=== PATIENT | male | born 1960 | race Caucasian/White ===

== ENCOUNTER 2018-08-08 18:52 | Emergency (ER) | payer MEDICAID ==
[~2018-08-08] VITALS: Ht 180.3 cm; Wt 127.0 kg
[2018-08-08 19:02] VITALS: BP 128/77
[2018-08-08 21:52] LABS: Basophils # (auto) 0.1 uL; Basophils % (auto) 0.9 % (0.0-2.0); Eosinophils # (auto) 0.3 uL; Eosinophils % (auto) 4.6 % (0.0-7.0); Hematocrit 46.7 % (41.0-53.0); Hemoglobin 16.2 g/dL (13.5-17.5); Lymphocytes # (auto) 2.1 uL; Lymphocytes % (auto) 32.3 % (10.0-50.0); Mean Corpuscular Hemoglobin 33.6 pg (28.0-32.0); Mean Corpuscular Hgb Conc. 34.7 g/dL (32.0-36.0); Mean Corpuscular Volume 96.8 fL (80.0-100.0); Monocytes # (auto) 0.6 uL; Monocytes % (auto) 9.7 % (0.0-12.0); Neutrophils # (auto) 3.5 uL; Neutrophils % (auto) 52.5 % (37.0-80.0); Nucleated Red Blood Cells % 0.1 %; Platelet Count (auto) 99 10^3/uL (140-450); Red Blood Cells 4.82 10^6/uL (4.5-5.90); Red Cell Distribution Width 13.1 % (11.8-14.3); White Blood Cell 6.6 10^3/uL (4.4-10.8)
[2018-08-08 22:20] LABS: Albumin 3.1 g/dL (3.4-5.0); BUN/Creatinine Ratio 13.1; Calcium 7.9 mg/dL (8.5-10.1); Potassium 3.7 mmol/L (3.5-5.1); Uric Acid 4.8 mg/dL (3.5-7.2)
[2018-08-08 22:22] LABS: Bilirubin, Total 0.7 mg/dL (0.2-1.0)
[2018-08-08] MEDS ORDERED: TETANUS-DIPTH-ACEL PERTUSSIS 0.5ML SYRG IM ONE (23:15)
[2018-08-08] MEDS ORDERED: TRIAMCINOLONE 40MG/ML 1ML VIAL IM ONE (23:15)
[2018-08-08] MEDS ORDERED: HYDROcodone-ACET 10/325MG TAB PO ONE (23:15)
== END 2018-08-08 23:33 | disposition home or self-care (01) ==
LOC: ER 18:57
DX: M77.32 Calcaneal spur, left foot (principal); M77.31 Calcaneal spur, right foot; Z23 Encounter for immunization
CPT/HCPCS: 20605; 36415; 73630; 80053; 83605; 84550; 85025; 90471; 90715; 99284; J3301; 20550

== ENCOUNTER 2018-10-30 18:50 | Emergency (ER) | payer MEDICAID ==
[~2018-10-30] VITALS: Ht 180.3 cm; Wt 122.5 kg
[2018-10-30 20:25] LABS: Basophils # (auto) 0.1 uL; Eosinophils # (auto) 0.3 uL; Lymphocytes # (auto) 1.8 uL; Monocytes # (auto) 0.8 uL; Neutrophils # (auto) 4.7 uL; White Blood Cell 7.7 10^3/uL (4.4-10.8)
[2018-10-30 20:26] LABS: Basophils % (auto) 0.8 % (0.0-2.0); Hematocrit 42.3 % (41.0-53.0); Hemoglobin 14.9 g/dL (13.5-17.5); Lymphocytes % (auto) 23.4 % (10.0-50.0); Mean Corpuscular Hemoglobin 34.6 pg (28.0-32.0); Mean Corpuscular Hgb Conc. 35.3 g/dL (32.0-36.0); Mean Corpuscular Volume 98.2 fL (80.0-100.0); Monocytes % (auto) 10.2 % (0.0-12.0); Neutrophils % (auto) 61.6 % (37.0-80.0); Nucleated Red Blood Cells % 0.2 %; Platelet Count (auto) 86 10^3/uL (140-450); Red Blood Cells 4.31 10^6/uL (4.5-5.90); Red Cell Distribution Width 13.8 % (11.8-14.3)
[2018-10-30] MEDS ORDERED: ALBUTEROL SULF 2.5 MG/0.5ML(0.5%) NEB SOLN NEB ONE (20:30)
[2018-10-30] MEDS ORDERED: FUROSEMIDE 20 MG/2 ML VIAL IV ONE (20:30)
[2018-10-30] MEDS ORDERED: IPRATROPIUM BROM 0.5 MG/2.5ML INH SOL NEB ONE (20:30)
[2018-10-30 20:48] LABS: Chloride 111 mmol/L (98-107); INR 0.97 (0.9-1.15); Partial Thromboplastin Time 24.1 sec (23.64-32.05); Potassium 3.5 mmol/L (3.5-5.1); Sodium 143 mmol/L (136-145)
[2018-10-30 20:55] LABS: Albumin 2.7 g/dL (3.4-5.0); Anion Gap 5 (5-15); BUN/Creatinine Ratio 10.6; Blood Urea Nitrogen 15 mg/dL (7-18); Calcium 8.8 mg/dL (8.5-10.1); Carbon Dioxide 27 mmol/L (21-32); GFR African American 66 mL/min; GFR Non-African American 55 mL/min; Glucose 114 mg/dL (74-106); Magnesium 2.3 mg/dL (1.6-2.6)
[2018-10-30 20:59] LABS: Alanine Aminotransferase 41 U/L (16-61); Alkaline Phosphatase 87 U/L (45-117); Aspartate Aminotransferase 34 U/L (15-37); Bilirubin, Total 0.5 mg/dL (0.2-1.0); Total Protein 6.7 g/dL (6.4-8.2)
[2018-10-30] MEDS ORDERED: SODIUM CHLORIDE 0.9% 500 ML IV ONE (22:00)
[2018-10-30] MEDS ORDERED: IOHEXOL 350 MG/ML 100ML IJ ONE (22:23)
[2018-10-30 22:51] LABS: Urine Bacteria FEW /hpf (None Seen); Urine Blood Negative /uL (Negative); Urine Hyaline Cast FEW /lpf (0 - 2); Urine Mucus FEW (None Seen); Urine Specific Gravity 1.005 (1.001-1.035); Urine WBC 25 /hpf (0 - 3)
[2018-10-31 00:01] VITALS: BP 140/75
== END 2018-10-31 00:42 | disposition home or self-care (01) ==
LOC: EDUNIT# 18:50 → EDBD 18:50 → ER 18:54
DX: J44.9 Chronic obstructive pulmonary disease, unspecified (principal); J98.01 Acute bronchospasm; N39.0 Urinary tract infection, site not specified; F17.210 Nicotine dependence, cigarettes, uncomplicated; Z90.49 Acquired absence of other specified parts of digestive tract; Z87.442 Personal history of urinary calculi
CPT/HCPCS: 36415; 71045; 71275; 80053; 81001; 83735; 83880; 84484; 85025; 85379; 85610; 85730; 93005; 94640; 94761; 96374; 99284; J1940; J7040; J7611; J7644; Q9967

== ENCOUNTER 2018-12-29 21:03 | Emergency (ER) | payer MEDICAID ==
[~2018-12-29] VITALS: Ht 180.3 cm; Wt 136.1 kg
[2018-12-29 21:54] VITALS: BP 154/85
[2018-12-29] MEDS ORDERED: KETOROLAC TROMETH 60MG/2ML VIAL IM ONE (22:15)
[2018-12-29] MEDS ORDERED: methylPREDNISolone SOD SUCC 125 MG/2 ML VL IM ONE (22:15)
== END 2018-12-29 22:39 | disposition home or self-care (01) ==
LOC: ER 21:05
DX: M19.031 Primary osteoarthritis, right wrist (principal); Z87.442 Personal history of urinary calculi
CPT/HCPCS: 73110; 73130; 96372; 99283; J1885; J2930

== ENCOUNTER 2019-01-22 13:49 | Emergency (ER) | payer MEDICAID ==
[~2019-01-22] VITALS: Ht 180.3 cm; Wt 136.1 kg
[2019-01-22] MEDS ORDERED: SODIUM CHLORIDE 0.9% 1,000 ML IVB ONE (14:54)
[2019-01-22 15:38] LABS: Basophils # (auto) 0 uL; Eosinophils # (auto) 0.3 uL; Hemoglobin 16.6 g/dL (13.5-17.5); Monocytes # (auto) 0.5 uL; Platelet Count (auto) 112 10^3/uL (140-450)
[2019-01-22 15:40] LABS: Basophils % (auto) 0.7 % (0.0-2.0); Eosinophils % (auto) 5.1 % (0.0-7.0); Hematocrit 46.9 % (41.0-53.0); Lymphocytes # (auto) 1.5 uL; Lymphocytes % (auto) 23.5 % (10.0-50.0); Mean Corpuscular Hemoglobin 35.6 pg (28.0-32.0); Mean Corpuscular Hgb Conc. 35.4 g/dL (32.0-36.0); Mean Corpuscular Volume 100.7 fL (80.0-100.0); Neutrophils # (auto) 4.1 uL; Neutrophils % (auto) 62.7 % (37.0-80.0); Nucleated Red Blood Cells % 0.2 %; Red Blood Cells 4.65 10^6/uL (4.5-5.90); Red Cell Distribution Width 13.2 % (11.8-14.3); White Blood Cell 6.5 10^3/uL (4.4-10.8)
[2019-01-22 15:54] LABS: Albumin 3.3 g/dL (3.4-5.0); Amylase 66 U/L (25-115); Anion Gap 3 (5-15); Blood Urea Nitrogen 10 mg/dL (7-18); Calcium 8.3 mg/dL (8.5-10.1); Carbon Dioxide 30 mmol/L (21-32); Chloride 108 mmol/L (98-107); GFR African American 111 mL/min; GFR Non-African American 92 mL/min; Glucose 102 mg/dL (74-106); Lipase 94 U/L (73-393); Magnesium 2.2 mg/dL (1.6-2.6); Sodium 141 mmol/L (136-145)
[2019-01-22 15:59] LABS: Alanine Aminotransferase 48 U/L (16-61); Alkaline Phosphatase 83 U/L (45-117); Aspartate Aminotransferase 33 U/L (15-37); Bilirubin, Total 0.8 mg/dL (0.2-1.0); Total Protein 7.3 g/dL (6.4-8.2)
[2019-01-22 18:03] LABS: Urine Bacteria NONE SEEN /hpf (None Seen); Urine Blood TRACE /uL (Negative); Urine Mucus FEW (None Seen); Urine Specific Gravity 1.016 (1.001-1.035); Urine WBC 132 /hpf (0 - 3)
[2019-01-22 19:51] VITALS: BP 172/85
== END 2019-01-22 19:53 | disposition home or self-care (01) ==
LOC: ER 13:51
DX: N30.00 Acute cystitis without hematuria (principal); F17.210 Nicotine dependence, cigarettes, uncomplicated; J44.9 Chronic obstructive pulmonary disease, unspecified; M19.90 Unspecified osteoarthritis, unspecified site
CPT/HCPCS: 36415; 71046; 74176; 80053; 81001; 82150; 83690; 83735; 84484; 85025

== ENCOUNTER → 2019-01-26 | Outpatient (CLI) | payer MEDICAID | END | disposition home or self-care (01) | LOC: Rad HDHVI 12:52 | PROVIDERS: ATTEND Internal Medicine | DX: I07.1 Rheumatic tricuspid insufficiency (principal); J44.9 Chronic obstructive pulmonary disease, unspecified; I10 Essential (primary) hypertension; R07.89 Other chest pain | CPT/HCPCS: 93306 ==

== ENCOUNTER → 2019-02-19 | Outpatient (CLI) | payer MEDICAID ==
[~2019-02-19] VITALS: Ht 180.3 cm; Wt 136.1 kg
[~2019-02-19] MED LIST: ADENOSINE 114 MG in GIVE UN-DILUTED 0 ML IV ONE; ADENOSINE 90 MG/30 ML INJ IV ONE
== END | disposition home or self-care (01) ==
LOC: Rad HDHVI 12:41
PROVIDERS: ATTEND Internal Medicine
DX: R06.02 Shortness of breath (principal)
CPT/HCPCS: 78452; 93005; 96374; 96375; A9500; J0153

== ENCOUNTER 2019-11-15 19:24 | Emergency (ER) | payer MEDICAID ==
[~2019-11-15] VITALS: Ht 180.3 cm; Wt 148.5 kg
[2019-11-15 19:49] VITALS: BP 152/75
== END 2019-11-16 00:02 | disposition home or self-care (01) ==
LOC: ER 19:24
DX: S83.92XA Sprain of unspecified site of left knee, initial encounter (principal); F17.210 Nicotine dependence, cigarettes, uncomplicated; Z90.49 Acquired absence of other specified parts of digestive tract; X58.XXXA Exposure to other specified factors, initial encounter; Y93.89 Activity, other specified; Y92.89 Other specified places as the place of occurrence of the external cause; Y99.8 Other external cause status; J44.9 Chronic obstructive pulmonary disease, unspecified
CPT/HCPCS: 73562; 93971

== ENCOUNTER 2022-12-24 19:20 | Inpatient (IN) | payer MEDICAID ==
[~2022-12-24] VITALS: Ht 180.3 cm; Wt 130.5 kg
[2022-12-24 21:33] LABS: Eosinophils # (auto) 0.2 10 ^3/uL (0-0.8); Hemoglobin 13.3 g/dL (13.5-17.5); Lymphocytes # (auto) 1.4 10 ^3/uL (0.4-5.4); Neutrophils # (auto) 3.9 10 ^3/uL (1.6-8.6); Nucleated Red Blood Cells % 0.1 %
[2022-12-24 21:35] LABS: Basophils # (auto) 0 10 ^3/uL (0-0.2); Basophils % (auto) 0.8 % (0.0-2.0); Eosinophils % (auto) 3.2 % (0.0-7.0); Hematocrit 38.7 % (41.0-53.0); Lymphocytes % (auto) 23.1 % (10.0-50.0); Mean Corpuscular Hemoglobin 37.8 pg (28.0-32.0); Mean Corpuscular Hgb Conc. 34.4 g/dL (32.0-36.0); Mean Corpuscular Volume 109.9 fL (80.0-100.0); Monocytes # (auto) 0.4 10 ^3/uL (0-1.3); Monocytes % (auto) 6.8 % (0.0-12.0); Neutrophils % (auto) 66.1 % (37.0-80.0); Red Blood Cells 3.52 10^6/uL (4.5-5.90); Red Cell Distribution Width 13.1 % (11.8-14.3); White Blood Cell 5.9 10^3/uL (4.4-10.8)
[2022-12-24 21:49] LABS: Alanine Aminotransferase 19 U/L (7-40); Albumin 2.8 g/dL (3.2-4.8); Alkaline Phosphatase 115 U/L (46-116); Anion Gap 5 (5-15); Aspartate Aminotransferase 37 U/L (13-40); BUN/Creatinine Ratio 7.1 (10.0-20.0); Bilirubin, Total 1.7 mg/dL (0.2-1.0); Blood Urea Nitrogen 6 mg/dL (9-23); Calcium 8.3 mg/dL (8.5-10.1); Carbon Dioxide 27 mmol/L (20-30); Chloride 105 mmol/L (98-107); Glucose 100 mg/dL (74-106); Lactic Acid w/Reflex 2.5 mmol/L (0.4-2.0); Potassium 3.6 mmol/L (3.5-5.1); Sodium 137 mmol/L (136-145); Total Protein 6.8 g/dL (5.7-8.2)
[2022-12-25] VITALS (8 sets, daily range): BP systolic 109–133; BP diastolic 58–68; PULSE 66–85; RESP 11–20; TEMP 98.3–98.5; O2SAT 90–100
[2022-12-25] MEDS ORDERED: CLINDAMYCIN 600MG IV 50 ML IV ONE (00:45)
[2022-12-25] MEDS ORDERED: cefTRIAXone 1GM/50ML D5W 50 ML IV ONE (00:45)
[2022-12-25] MEDS ORDERED: SODIUM CHLORIDE 0.9% 1,000 ML IV ONE (01:15)
[2022-12-25] MEDS ORDERED: HYDROcodone-ACET 5/325MG TAB PO PRN (03:30)
[2022-12-25] MEDS ORDERED: ACETAMINOPHEN 325 MG TAB PO PRN (03:30)
[2022-12-25] MEDS ORDERED: ONDANSETRON HCL 4 MG/2 ML VIAL IV PRN (03:30)
[2022-12-25] MEDS ORDERED: ALBUTEROL SULF 2.5 MG/0.5ML(0.5%) NEB SOLN NEB PRN (03:30)
[2022-12-25] MEDS: traMADol HCL 50 MG TAB PO PRN ×2 (07:30→20:07)
[2022-12-25] MEDS: CLINDAMYCIN 600MG IV 50 ML IV SCH ×3 (07:30→22:43)
[2022-12-25] MEDS: cefTRIAXone 1GM/50ML D5W 50 ML IV SCH (09:00)
[2022-12-25] MEDS ORDERED: ALBUTEROL MEDNEB 2.5 mg/3ml NEB ONE (09:38)
[2022-12-25] MEDS: LISINOPRIL 10 MG TAB PO SCH (09:52)
[2022-12-25] MEDS ORDERED: HCTZ 25 MG TAB PO SCH (10:00)
[2022-12-25] MEDS ORDERED: POTASSIUM CHL 20 Meq TABLET PO ONE ×2 (13:00→13:36)
[2022-12-25] MEDS ORDERED: FUROSEMIDE 40 MG/4 ML VIAL IV ONE (13:00)
[2022-12-25] MEDS ORDERED: NICOTINE 21MG/24 HR TOPICAL PATCH TD ONE (13:00)
[2022-12-25] MEDS ORDERED: FUROSEMIDE 40 MG/4 ML VIAL ONE (13:35)
[2022-12-25 13:46] LABS: Urine Bacteria NONE SEEN /hpf (None Seen); Urine Blood 1+ /uL (Negative); Urine Clarity Clear (Clear); Urine Color Colorless (Yellow); Urine Protein, UAD Negative (Negative); Urine Specific Gravity 1.006 (1.001-1.035); Urine WBC 84 /hpf (0 - 3)
[2022-12-25] MEDS: ALBUTEROL SULF 2.5 MG/0.5ML(0.5%) NEB SOLN NEB SCH (18:09)
[2022-12-25] MEDS: IPRATROPIUM BROM 0.5 MG/2.5ML INH SOL NEB SCH (18:09)
[2022-12-25] MEDS ORDERED: DOCU-265 PO (20:31)
[2022-12-25] MEDS ORDERED: DICL75TA4 PO (20:31)
[2022-12-25] MEDS ORDERED: ALBU108A5 INH (20:31)
[2022-12-25] MEDS ORDERED: FLUT50SP NAS (20:31)
[2022-12-25] MEDS ORDERED: TRAM-711 PO (20:31)
[2022-12-25] MEDS ORDERED: DICL1GEL73 TOP (20:31)
[2022-12-25] MEDS ORDERED: IPRIH INH (20:31)
[2022-12-25] MEDS ORDERED: LIDO1PAD55 TOP (20:31)
[2022-12-26] VITALS (12 sets, daily range): BP systolic 91–120; BP diastolic 47–57; PULSE 68–77; RESP 16–20; TEMP 98.2–98.7; O2SAT 90–100
[2022-12-26] MEDS: CLINDAMYCIN 600MG IV 50 ML IV SCH ×3 (05:27→22:59)
[2022-12-26 06:18] LABS: Basophils # (auto) 0 10 ^3/uL (0-0.2); Basophils % (auto) 0.8 % (0.0-2.0); Lymphocytes # (auto) 1.4 10 ^3/uL (0.4-5.4); Neutrophils # (auto) 2.8 10 ^3/uL (1.6-8.6)
[2022-12-26 06:22] LABS: Eosinophils # (auto) 0.1 10 ^3/uL (0-0.8); Eosinophils % (auto) 3.2 % (0.0-7.0); Hematocrit 34.6 % (41.0-53.0); Hemoglobin 12.1 g/dL (13.5-17.5); Lymphocytes % (auto) 29.3 % (10.0-50.0); Mean Corpuscular Hemoglobin 37.9 pg (28.0-32.0); Mean Corpuscular Hgb Conc. 34.9 g/dL (32.0-36.0); Mean Corpuscular Volume 108.6 fL (80.0-100.0); Monocytes # (auto) 0.3 10 ^3/uL (0-1.3); Monocytes % (auto) 7.4 % (0.0-12.0); Neutrophils % (auto) 59.3 % (37.0-80.0); Red Blood Cells 3.18 10^6/uL (4.5-5.90); Red Cell Distribution Width 13.3 % (11.8-14.3); White Blood Cell 4.7 10^3/uL (4.4-10.8)
[2022-12-26] MEDS ORDERED: ALBUTEROL MEDNEB 2.5 mg/3ml NEB ONE ×3 (06:30→18:20)
[2022-12-26 06:34] LABS: Anion Gap 3 (5-15); Carbon Dioxide 28 mmol/L (20-30); Chloride 107 mmol/L (98-107); Potassium 3.8 mmol/L (3.5-5.1); Sodium 138 mmol/L (136-145)
[2022-12-26 06:35] LABS: Calcium 7.7 mg/dL (8.7-10.4)
[2022-12-26 06:40] LABS: BUN/Creatinine Ratio 8.3 (10.0-20.0); Blood Urea Nitrogen 7 mg/dL (9-23); Glucose 82 mg/dL (74-106)
[2022-12-26 06:41] LABS: Magnesium 1.9 mg/dL (1.6-2.6)
[2022-12-26] MEDS: ALBUTEROL SULF 2.5 MG/0.5ML(0.5%) NEB SOLN NEB SCH ×3 (07:27→18:56)
[2022-12-26] MEDS: IPRATROPIUM BROM 0.5 MG/2.5ML INH SOL NEB SCH ×3 (07:27→18:56)
[2022-12-26] MEDS: FUROSEMIDE 40 MG/4 ML VIAL IV SCH (09:23)
[2022-12-26] MEDS: cefTRIAXone 1GM/50ML D5W 50 ML IV SCH (09:23)
[2022-12-26] MEDS: POTASSIUM CHL 20 Meq TABLET PO SCH (09:24)
[2022-12-26] MEDS: LISINOPRIL 10 MG TAB PO SCH (09:24)
[2022-12-26] MEDS: ENOXAPARIN SOD 40 MG/0.4 ML SYRINGE SC SCH (09:24)
[2022-12-26] MEDS: NICOTINE 21MG/24 HR TOPICAL PATCH TD SCH (15:31)
[2022-12-27] VITALS (12 sets, daily range): BP systolic 101–133; BP diastolic 54–68; PULSE 66–84; RESP 15–20; TEMP 97.9–98.6; O2SAT 91–99
[2022-12-27] MEDS: CLINDAMYCIN 600MG IV 50 ML IV SCH ×3 (05:34→21:30)
[2022-12-27 05:38] LABS: Anion Gap 3 (5-15); Carbon Dioxide 27 mmol/L (20-30); Chloride 107 mmol/L (98-107); Potassium 3.9 mmol/L (3.5-5.1); Sodium 137 mmol/L (136-145)
[2022-12-27 05:39] LABS: Calcium 8.1 mg/dL (8.7-10.4)
[2022-12-27 05:44] LABS: Glucose 87 mg/dL (74-106)
[2022-12-27 05:45] LABS: BUN/Creatinine Ratio 9.1 (10.0-20.0); Blood Urea Nitrogen 8 mg/dL (9-23)
[2022-12-27] MEDS ORDERED: ALBUTEROL MEDNEB 2.5 mg/3ml NEB ONE ×2 (06:26→11:41)
[2022-12-27] MEDS: ALBUTEROL SULF 2.5 MG/0.5ML(0.5%) NEB SOLN NEB SCH ×3 (07:52→18:55)
[2022-12-27] MEDS: IPRATROPIUM BROM 0.5 MG/2.5ML INH SOL NEB SCH ×3 (07:52→18:55)
[2022-12-27] MEDS: NICOTINE 21MG/24 HR TOPICAL PATCH TD SCH (11:28)
[2022-12-27] MEDS: FUROSEMIDE 40 MG/4 ML VIAL IV SCH (11:29)
[2022-12-27] MEDS: cefTRIAXone 1GM/50ML D5W 50 ML IV SCH (11:29)
[2022-12-27] MEDS: ENOXAPARIN SOD 40 MG/0.4 ML SYRINGE SC SCH (11:30)
[2022-12-27] MEDS: LISINOPRIL 10 MG TAB PO SCH (11:30)
[2022-12-27] MEDS: POTASSIUM CHL 20 Meq TABLET PO SCH (11:30)
[2022-12-28] VITALS (16 sets, daily range): BP systolic 102–127; BP diastolic 42–65; PULSE 64–80; RESP 16–20; TEMP 97.3–98.7; O2SAT 90–99
[2022-12-28] MEDS: CLINDAMYCIN 600MG IV 50 ML IV SCH (05:27)
[2022-12-28] MEDS ORDERED: ALBUTEROL MEDNEB 2.5 mg/3ml NEB ONE ×3 (06:06→17:55)
[2022-12-28] MEDS: IPRATROPIUM BROM 0.5 MG/2.5ML INH SOL NEB SCH ×3 (07:57→18:58)
[2022-12-28] MEDS: ALBUTEROL SULF 2.5 MG/0.5ML(0.5%) NEB SOLN NEB SCH ×3 (07:57→18:58)
[2022-12-28] MEDS: LISINOPRIL 10 MG TAB PO SCH (10:00)
[2022-12-28] MEDS: ENOXAPARIN SOD 40 MG/0.4 ML SYRINGE SC SCH (10:07)
[2022-12-28] MEDS: NICOTINE 21MG/24 HR TOPICAL PATCH TD SCH (10:08)
[2022-12-28] MEDS: cefTRIAXone 1GM/50ML D5W 50 ML IV SCH (10:08)
[2022-12-28] MEDS: FUROSEMIDE 40 MG/4 ML VIAL IV SCH (10:08)
[2022-12-28] MEDS: POTASSIUM CHL 20 Meq TABLET PO SCH (10:08)
[2022-12-28] MEDS ORDERED: VANCOMYCIN PER PHARMACY 0 MG IV SCH (12:45)
[2022-12-28] MEDS ORDERED: VANCOMYCIN 1GM/250ML 250 ML IV ONE ×2 (13:00→15:30)
[2022-12-29] VITALS (9 sets, daily range): BP systolic 103–130; BP diastolic 51–80; PULSE 68–83; RESP 16–19; TEMP 98–98.7; O2SAT 92–96
[2022-12-29] MEDS: VANCOMYCIN 1GM/250ML 250 ML IV SCH ×3 (00:11→21:06)
[2022-12-29] MEDS ORDERED: ALBUTEROL MEDNEB 2.5 mg/3ml NEB ONE ×3 (06:57→17:41)
[2022-12-29] MEDS: ALBUTEROL SULF 2.5 MG/0.5ML(0.5%) NEB SOLN NEB SCH ×3 (06:59→18:31)
[2022-12-29] MEDS: IPRATROPIUM BROM 0.5 MG/2.5ML INH SOL NEB SCH ×3 (06:59→18:30)
[2022-12-29] MEDS: FUROSEMIDE 40 MG TAB PO SCH (11:28)
[2022-12-29] MEDS: POTASSIUM CHL 20 Meq TABLET PO SCH (11:28)
[2022-12-29] MEDS: cefTRIAXone 1GM/50ML D5W 50 ML IV SCH (11:28)
[2022-12-29] MEDS: LISINOPRIL 10 MG TAB PO SCH (11:29)
[2022-12-29] MEDS: ENOXAPARIN SOD 40 MG/0.4 ML SYRINGE SC SCH (11:29)
[2022-12-29] MEDS: traMADol HCL 50 MG TAB PO PRN (11:30)
[2022-12-29] MEDS: NICOTINE 21MG/24 HR TOPICAL PATCH TD SCH (11:30)
[2022-12-29] MEDS ORDERED: IOHEXOL 300 MG/ML 100ML BOTTLE IJ ONE (23:15)
[2022-12-30] VITALS (11 sets, daily range): BP systolic 96–119; BP diastolic 49–62; PULSE 59–108; RESP 18–20; TEMP 97.5–97.9; O2SAT 91–100
[2022-12-30] MEDS ORDERED: ALBUTEROL MEDNEB 2.5 mg/3ml NEB ONE ×3 (06:09→21:03)
[2022-12-30] MEDS: IPRATROPIUM BROM 0.5 MG/2.5ML INH SOL NEB SCH ×2 (07:18→19:45)
[2022-12-30] MEDS: ALBUTEROL SULF 2.5 MG/0.5ML(0.5%) NEB SOLN NEB SCH ×2 (07:18→19:45)
[2022-12-30] MEDS: cefTRIAXone 1GM/50ML D5W 50 ML IV SCH ×2 (09:00→11:00)
[2022-12-30] MEDS: traMADol HCL 50 MG TAB PO PRN (09:43)
[2022-12-30] MEDS: ENOXAPARIN SOD 40 MG/0.4 ML SYRINGE SC SCH (09:43)
[2022-12-30] MEDS: POTASSIUM CHL 20 Meq TABLET PO SCH (09:43)
[2022-12-30] MEDS: VANCOMYCIN 1GM/250ML 250 ML IV SCH ×2 (09:44→20:10)
[2022-12-30] MEDS: NICOTINE 21MG/24 HR TOPICAL PATCH TD SCH (09:45)
[2022-12-30] MEDS: FUROSEMIDE 40 MG TAB PO SCH (09:52)
[2022-12-30] MEDS: LISINOPRIL 10 MG TAB PO SCH (09:52)
[2022-12-31] VITALS (12 sets, daily range): BP systolic 102–123; BP diastolic 44–57; PULSE 65–94; RESP 17–20; TEMP 97.8–98.3; O2SAT 90–100
[2022-12-31] MEDS ORDERED: ALBUTEROL MEDNEB 2.5 mg/3ml NEB ONE ×2 (05:54→10:56)
[2022-12-31] MEDS: IPRATROPIUM BROM 0.5 MG/2.5ML INH SOL NEB SCH ×3 (07:12→19:03)
[2022-12-31] MEDS: ALBUTEROL SULF 2.5 MG/0.5ML(0.5%) NEB SOLN NEB SCH ×3 (07:12→19:02)
[2022-12-31] MEDS: ENOXAPARIN SOD 40 MG/0.4 ML SYRINGE SC SCH (09:40)
[2022-12-31] MEDS: POTASSIUM CHL 20 Meq TABLET PO SCH (09:40)
[2022-12-31] MEDS: VANCOMYCIN 1GM/250ML 250 ML IV SCH ×2 (09:40→20:27)
[2022-12-31] MEDS: LISINOPRIL 10 MG TAB PO SCH (09:41)
[2022-12-31] MEDS: FUROSEMIDE 40 MG TAB PO SCH (09:41)
[2022-12-31] MEDS: NICOTINE 21MG/24 HR TOPICAL PATCH TD SCH (09:44)
[2022-12-31] MEDS ORDERED: IPRATROPIUM BROM 0.5 MG/2.5ML INH SOL ONE (10:56)
[2022-12-31] MEDS: cefTRIAXone 1GM/50ML D5W 50 ML IV SCH (11:32)
[2023-01-01] VITALS (8 sets, daily range): BP systolic 109–119; BP diastolic 56–58; PULSE 72–81; RESP 17–18; TEMP 98.4–98.5; O2SAT 90–95
[2023-01-01] MEDS: traMADol HCL 50 MG TAB PO PRN (03:59)
[2023-01-01] MEDS ORDERED: ALBUTEROL MEDNEB 2.5 mg/3ml NEB ONE ×2 (05:46→11:01)
[2023-01-01] MEDS: ALBUTEROL SULF 2.5 MG/0.5ML(0.5%) NEB SOLN NEB SCH ×2 (06:36→11:03)
[2023-01-01] MEDS: IPRATROPIUM BROM 0.5 MG/2.5ML INH SOL NEB SCH ×2 (06:36→11:03)
[2023-01-01] MEDS: ENOXAPARIN SOD 40 MG/0.4 ML SYRINGE SC SCH (08:49)
[2023-01-01] MEDS: POTASSIUM CHL 20 Meq TABLET PO SCH (08:50)
[2023-01-01] MEDS: cefTRIAXone 1GM/50ML D5W 50 ML IV SCH (08:50)
[2023-01-01] MEDS: LISINOPRIL 10 MG TAB PO SCH (08:51)
[2023-01-01] MEDS: NICOTINE 21MG/24 HR TOPICAL PATCH TD SCH (08:52)
[2023-01-01] MEDS: FUROSEMIDE 40 MG TAB PO SCH (08:52)
[2023-01-01] MEDS: VANCOMYCIN 1GM/250ML 250 ML IV SCH (10:28)
== END 2023-01-01 14:30 | DRG 194 ==
LOC: ER 19:20 → OVERFLOW 12-25 03:19 → WEST WING 12-25 19:01
PROVIDERS: ADMIT Nurse Practitioner; ATTEND Internal Medicine
PROC: 05HB33Z Insertion of Infusion Device into Right Basilic Vein, Percutaneous Approach (ICD-10-PCS; principal; 2022-12-31)
PROC: B54MZZA Ultrasonography of Right Upper Extremity Veins, Guidance (ICD-10-PCS; 2022-12-31)
DX: I11.0 Hypertensive heart disease with heart failure (principal); L03.115 Cellulitis of right lower limb; I50.33 Acute on chronic diastolic (congestive) heart failure; E66.01 Morbid (severe) obesity due to excess calories; J44.9 Chronic obstructive pulmonary disease, unspecified; N39.0 Urinary tract infection, site not specified; F17.210 Nicotine dependence, cigarettes, uncomplicated; Z87.442 Personal history of urinary calculi; Z68.41 Body mass index [BMI] 40.0-44.9, adult; Z90.49 Acquired absence of other specified parts of digestive tract
CPT/HCPCS: 36415; 71045; 73701; 80048; 80053; 80202; 81001; 83605; 83735; 83880; 84484; 85025; 87040; 93306; 93971; 94640; G0378; J0696; J3490

== ENCOUNTER 2023-06-20 14:40 | Inpatient (IN) | payer MEDICAID ==
[~2023-06-20] VITALS: Ht 180.3 cm; Wt 159.4 kg
[~2023-06-20 14:40] MED LIST changes: -ADENOSINE 114 MG in GIVE UN-DILUTED 0 ML IV ONE; -ADENOSINE 90 MG/30 ML INJ IV ONE; +ALBU108A5 INH; +CIPR-173 PO; +FLUT50SP NAS; +FURO80TA3 PO; +IPRIH INH; +LISI10TA34 PO; +POTA-36 PO; +TAMS-35 PO; +TRAM-711 PO
[2023-06-20] MEDS ORDERED: VANCOMYCIN PER PHARMACY 0 MG IV SCH (16:15)
[2023-06-20 19:12] LABS: Basophils # (auto) 0 10 ^3/uL (0-0.2); Eosinophils # (auto) 0.2 10 ^3/uL (0-0.8); Lymphocytes # (auto) 1.1 10 ^3/uL (0.4-5.4); Monocytes # (auto) 1.4 10 ^3/uL (0-1.3)
[2023-06-20 19:16] LABS: Basophils % (auto) 0.3 % (0.0-2.0); Eosinophils % (auto) 1.4 % (0.0-7.0); Hematocrit 25.1 % (41.0-53.0); Hemoglobin 8.3 g/dL (13.5-17.5); Lymphocytes % (auto) 6.6 % (10.0-50.0); Mean Corpuscular Hemoglobin 34.3 pg (28.0-32.0); Mean Corpuscular Hgb Conc. 32.9 g/dL (32.0-36.0); Mean Corpuscular Volume 104.3 fL (80.0-100.0); Monocytes % (auto) 8.8 % (0.0-12.0); Neutrophils # (auto) 13.6 10 ^3/uL (1.6-8.6); Neutrophils % (auto) 82.9 % (37.0-80.0); Red Blood Cells 2.41 10^6/uL (4.5-5.90); Red Cell Distribution Width 13.9 % (11.8-14.3); White Blood Cell 16.4 10^3/uL (4.4-10.8)
[2023-06-20 19:41] LABS: Alanine Aminotransferase 20 U/L (7-40); Albumin 2.1 g/dL (3.2-4.8); Alkaline Phosphatase 75 U/L (46-116); Anion Gap 8 (5-15); Aspartate Aminotransferase 44 U/L (13-40); BUN/Creatinine Ratio 9.3 (10.0-20.0); Bilirubin, Total 1.5 mg/dL (0.2-1.0); Blood Urea Nitrogen 18 mg/dL (9-23); Calcium 7.7 mg/dL (8.5-10.1); Carbon Dioxide 20 mmol/L (20-30); Chloride 102 mmol/L (98-107); Glucose 142 mg/dL (74-106); Lactic Acid w/Reflex 2.1 mmol/L (0.4-2.0); Potassium 3.2 mmol/L (3.5-5.1); Sodium 130 mmol/L (136-145)
[2023-06-20 19:50] LABS: CRP High Sensitivity 6.06 mg/dL (<1.0)
[2023-06-20 20:01] LABS: Erythrocyte Sedimentation Rate 119 mm/hr (0-20)
[2023-06-20 20:03] LABS: Magnesium 1.8 mg/dL (1.6-2.6)
[2023-06-20] MEDS ORDERED: ACETAMINOPHEN 325 MG TAB PO PRN (21:15)
[2023-06-20 21:25] VITALS: BP 136/64; PULSE 116; RESP 22; TEMP 98; O2SAT 98
[2023-06-20] MEDS ORDERED: methylPREDNISolone SOD SUCC 40 MG/ML VL IV SCH (22:00)
[2023-06-20] MEDS ORDERED: MORPHINE SULFATE INJ 2 MG/ml SYRG IV PRN (22:30)
[2023-06-20] MEDS ORDERED: NITROGLYCERIN 0.4 MG SL TAB SL PRN (22:30)
[2023-06-21] VITALS (14 sets, daily range): BP systolic 98–111; BP diastolic 48–85; PULSE 55–100; RESP 18–22; TEMP 97.3–98.9; O2SAT 93–99
[2023-06-21] MEDS: HYDROcodone-ACET 5/325MG TAB PO PRN (02:13)
[2023-06-21 03:51] LABS: Urine Bacteria MANY /hpf (None Seen); Urine Blood 3+ /uL (Negative); Urine Clarity Turbid (Clear); Urine Color Light-Orange (Yellow); Urine Hyaline Cast FEW /lpf (0 - 2); Urine Mucus FEW (None Seen); Urine Protein, UAD 1+ (Negative); Urine Specific Gravity 1.014 (1.001-1.035); Urine Urobilinogen Normal (Negative); Urine WBC 400 /hpf (0 - 3); Urine WBC Clumps PRESENT /hpf (None Seen); Urine pH 5.5 (5.0-9.0)
[2023-06-21] MEDS: methylPREDNISolone SOD SUCC 40 MG/ML VL IV SCH (03:58)
[2023-06-21] MEDS: VANCOMYCIN 1GM/200ML 200 ML IV ONE ×2 (03:58→07:17)
[2023-06-21] MEDS: SODIUM CHLORIDE 0.9% 1,000 ML IV SCH (03:59)
[2023-06-21] MEDS: SODIUM CHLORIDE 0.9% 500 ML IV ONE (04:05)
[2023-06-21 06:17] LABS: Lymphocytes # (auto) 0.8 10 ^3/uL (0.4-5.4); Red Cell Distribution Width 14.1 % (11.8-14.3)
[2023-06-21 06:20] LABS: Basophils # (auto) 0.1 10 ^3/uL (0-0.2); Basophils % (auto) 0.3 % (0.0-2.0); Eosinophils # (auto) 0.2 10 ^3/uL (0-0.8); Eosinophils % (auto) 1.6 % (0.0-7.0); Hematocrit 21.2 % (41.0-53.0); Hemoglobin 7.2 g/dL (13.5-17.5); Lymphocytes % (auto) 5.5 % (10.0-50.0); Mean Corpuscular Hemoglobin 35.4 pg (28.0-32.0); Mean Corpuscular Hgb Conc. 33.9 g/dL (32.0-36.0); Mean Corpuscular Volume 104.5 fL (80.0-100.0); Monocytes # (auto) 1.1 10 ^3/uL (0-1.3); Monocytes % (auto) 7.5 % (0.0-12.0); Neutrophils # (auto) 12.8 10 ^3/uL (1.6-8.6); Neutrophils % (auto) 85.1 % (37.0-80.0); Nucleated Red Blood Cells % 0.1 %; Red Blood Cells 2.03 10^6/uL (4.5-5.90); White Blood Cell 15.1 10^3/uL (4.4-10.8)
[2023-06-21 06:46] LABS: Alanine Aminotransferase < 9 U/L (7-40); Albumin 1.7 g/dL (3.2-4.8); Alkaline Phosphatase 63 U/L (46-116); Anion Gap 9 (5-15); Aspartate Aminotransferase 37 U/L (13-40); BUN/Creatinine Ratio 12.1 (10.0-20.0); Blood Urea Nitrogen 23 mg/dL (9-23); Calcium 7.2 mg/dL (8.5-10.1); Carbon Dioxide 19 mmol/L (20-30); Chloride 104 mmol/L (98-107); Glucose 125 mg/dL (74-106); Potassium 3.3 mmol/L (3.5-5.1); Sodium 132 mmol/L (136-145)
[2023-06-21 06:47] LABS: Bilirubin, Total 1.6 mg/dL (0.2-1.0); Total Protein 5.8 g/dL (5.7-8.2)
[2023-06-21] MEDS: FUROSEMIDE 100 MG/10ML VIAL IV ONE (07:17)
[2023-06-21] MEDS: methylPREDNISolone SOD SUCC 125 MG/2 ML VL IV ONE (07:17)
[2023-06-21] MEDS: PIPERACILLIN-TAZOB 3.375GM 100 ML IV ONE (07:18)
[2023-06-21] MEDS: cefTRIAXone 1GM/50ML D5W 50 ML IV SCH (09:07)
[2023-06-21] MEDS: FUROSEMIDE 40 MG/4 ML VIAL IV SCH (09:07)
[2023-06-21] MEDS: ALBUTEROL SULF 2.5 MG/0.5ML(0.5%) NEB SOLN NEB PRN (10:31)
[2023-06-21] MEDS: IPRATROPIUM BROM 0.5 MG/2.5ML INH SOL NEB PRN (10:31)
[2023-06-21] MEDS: POTASSIUM EFFERVESENT TAB 25 MEQ PO ONE (12:29)
[2023-06-21] MEDS: ALBUMIN 25% 100 ML IV SCH (12:31)
[2023-06-21 13:05] LABS: Protein, Urine 118.2 mg/dL (0.0-11.9)
[2023-06-21 13:08] LABS: Creatinine, Urine 107.56 mg/dL (30.0-125.0); Urine Protein/Creatinine Ratio 1.1
[2023-06-21] MEDS: OCTREOTIDE ACETATE 100 MCG/ML VL SUBCUT SCH (14:42)
[2023-06-21] MEDS: SODIUM BICARB 50mEq/50ml Vial 50 ML in SOD CHL 0.45% 1,000 ML IV SCH (15:23)
[2023-06-21] MEDS ORDERED: HYDR12.59 PO (17:11)
[2023-06-21] MEDS ORDERED: FURO1TAB32 PO (17:11)
[2023-06-21 18:11] LABS: Basophils # (auto) 0 10 ^3/uL (0-0.2); Basophils % (auto) 0.1 % (0.0-2.0); Eosinophils # (auto) 0 10 ^3/uL (0-0.8); Eosinophils % (auto) 0.1 % (0.0-7.0); Hematocrit 27.5 % (41.0-53.0); Hemoglobin 8.1 g/dL (13.5-17.5); Lymphocytes # (auto) 0.5 10 ^3/uL (0.4-5.4); Lymphocytes % (auto) 4.9 % (10.0-50.0); Mean Corpuscular Hemoglobin 35.5 pg (28.0-32.0); Mean Corpuscular Hgb Conc. 29.5 g/dL (32.0-36.0); Mean Corpuscular Volume 120.2 fL (80.0-100.0); Monocytes # (auto) 0.2 10 ^3/uL (0-1.3); Monocytes % (auto) 2.2 % (0.0-12.0); Neutrophils # (auto) 8.5 10 ^3/uL (1.6-8.6); Neutrophils % (auto) 92.7 % (37.0-80.0); Red Blood Cells 2.29 10^6/uL (4.5-5.90); Red Cell Distribution Width 16.6 % (11.8-14.3); White Blood Cell 9.2 10^3/uL (4.4-10.8)
[2023-06-21 19:15] LABS: Macrocytosis Marked; Platelet Estimate Adequate
[2023-06-21 21:26] LABS: Amphetamine Screen, Urine Neg (NEGATIVE); Barbiturate Scree,Urine Neg (NEGATIVE); Benzodiazephine Screen, Urine Neg (NEGATIVE); Cocaine Screen, Urine Neg (NEGATIVE); Opiate Scree,Urine Neg (NEGATIVE)
[2023-06-21 21:27] LABS: Cannabinoid Screen, Urine Neg (NEGATIVE); Phencyclidine Screen, Urine Neg (NEGATIVE)
[2023-06-21] MEDS: METOPROLOL TARTRATE 25 MG TAB PO SCH (22:00)
[2023-06-21] MEDS: VANCOMYCIN 1GM/200ML 200 ML IV SCH (22:24)
[2023-06-22] VITALS (11 sets, daily range): BP systolic 94–130; BP diastolic 51–64; PULSE 53–87; RESP 15–22; TEMP 97.8–98.6; O2SAT 95–97
[2023-06-22 06:45] LABS: Basophils # (auto) 0 10 ^3/uL (0-0.2); Basophils % (auto) 0.1 % (0.0-2.0); Eosinophils # (auto) 0 10 ^3/uL (0-0.8); Hemoglobin 7.8 g/dL (13.5-17.5); Lymphocytes % (auto) 4.4 % (10.0-50.0)
[2023-06-22 06:47] LABS: Hematocrit 23.5 % (41.0-53.0); Lymphocytes # (auto) 0.6 10 ^3/uL (0.4-5.4); Mean Corpuscular Hemoglobin 35.1 pg (28.0-32.0); Mean Corpuscular Hgb Conc. 33.1 g/dL (32.0-36.0); Monocytes # (auto) 0.3 10 ^3/uL (0-1.3); Monocytes % (auto) 2.7 % (0.0-12.0); Neutrophils # (auto) 11.6 10 ^3/uL (1.6-8.6); Neutrophils % (auto) 92.8 % (37.0-80.0); Red Blood Cells 2.22 10^6/uL (4.5-5.90); Red Cell Distribution Width 14.1 % (11.8-14.3); White Blood Cell 12.5 10^3/uL (4.4-10.8)
[2023-06-22 07:12] LABS: Alanine Aminotransferase 14 U/L (7-40); Alkaline Phosphatase 52 U/L (46-116); Anion Gap 9 (5-15); BUN/Creatinine Ratio 11.9 (10.0-20.0); Blood Urea Nitrogen 23 mg/dL (9-23); Calcium 8.1 mg/dL (8.5-10.1); Carbon Dioxide 22 mmol/L (20-30); Chloride 102 mmol/L (98-107); Glucose 166 mg/dL (74-106); Potassium 4.1 mmol/L (3.5-5.1); Sodium 133 mmol/L (136-145)
[2023-06-22 07:13] LABS: Albumin 2.4 g/dL (3.2-4.8); Aspartate Aminotransferase 28 U/L (13-40)
[2023-06-22 07:14] LABS: Bilirubin, Total 1.2 mg/dL (0.2-1.0); Total Protein 6.3 g/dL (5.7-8.2)
[2023-06-22] MEDS: SODIUM BICARB 50mEq/50ml Vial 50 ML in SOD CHL 0.45% 1,000 ML IV SCH (14:21)
[2023-06-22] MEDS: ONDANSETRON HCL 4 MG/2 ML VIAL IV PRN (14:27)
[2023-06-22] MEDS: traMADol HCL 50 MG TAB PO PRN (17:46)
[2023-06-22] MEDS: ERGOCALCIFEROL 50,000 UNIT(1.25MG) CAP PO SCH (19:47)
[2023-06-22] MEDS: methylPREDNISolone SOD SUCC 40 MG/ML VL IV SCH (21:36)
[2023-06-23] VITALS (9 sets, daily range): BP systolic 96–127; BP diastolic 34–83; PULSE 78–88; RESP 18–22; TEMP 97.5–98.7; O2SAT 90–96
[2023-06-23 09:44] LABS: Basophils # (auto) 0 10 ^3/uL (0-0.2); Eosinophils # (auto) 0 10 ^3/uL (0-0.8); White Blood Cell 21.3 10^3/uL (4.4-10.8)
[2023-06-23 09:46] LABS: Hematocrit 25.2 % (41.0-53.0); Hemoglobin 8.2 g/dL (13.5-17.5); Lymphocytes # (auto) 0.5 10 ^3/uL (0.4-5.4); Lymphocytes % (auto) 2.6 % (10.0-50.0); Mean Corpuscular Hgb Conc. 32.4 g/dL (32.0-36.0); Mean Corpuscular Volume 107.9 fL (80.0-100.0); Monocytes % (auto) 4.5 % (0.0-12.0); Neutrophils # (auto) 19.8 10 ^3/uL (1.6-8.6); Neutrophils % (auto) 92.9 % (37.0-80.0); Red Blood Cells 2.34 10^6/uL (4.5-5.90); Red Cell Distribution Width 14.8 % (11.8-14.3)
[2023-06-23 09:58] LABS: Chloride 101 mmol/L (98-107); Sodium 132 mmol/L (136-145)
[2023-06-23 09:59] LABS: Anion Gap 10 (5-15); Carbon Dioxide 21 mmol/L (20-30)
[2023-06-23 10:00] LABS: Calcium 8.1 mg/dL (8.5-10.1)
[2023-06-23 10:04] LABS: BUN/Creatinine Ratio 14.4 (10.0-20.0); Blood Urea Nitrogen 28 mg/dL (9-23); Glucose 202 mg/dL (74-106)
[2023-06-23] MEDS ORDERED: MEROPENEM 1GM IVPB 50 ML IV ONE (12:30)
[2023-06-23] MEDS: MEROPENEM 1GM IVPB 50 ML IV SCH (14:23)
[2023-06-24] VITALS (10 sets, daily range): BP systolic 93–124; BP diastolic 51–66; PULSE 61–89; RESP 17–20; TEMP 97.2–98.3; O2SAT 91–94
[2023-06-24] MEDS: DOCUSATE SOD 100 MG CAP PO PRN (10:06)
[2023-06-24] MEDS: methylPREDNISolone SOD SUCC 40 MG/ML VL IV SCH (10:06)
[2023-06-24] MEDS: ERTAPENEM SOD INJ 0.5 GM in SODIUM CHL 0.9% 50 ML IV ONE (19:30)
[2023-06-25] VITALS (11 sets, daily range): BP systolic 98–119; BP diastolic 53–67; PULSE 63–76; RESP 18–21; TEMP 97.3–98.9; O2SAT 94–96
[2023-06-25] MEDS: predniSONE 20 MG TAB PO SCH (10:00)
[2023-06-25] MEDS: ERTAPENEM SOD INJ 0.5 GM in SODIUM CHL 0.9% 50 ML IV SCH (10:00)
[2023-06-26] VITALS (7 sets, daily range): BP systolic 90–116; BP diastolic 49–66; PULSE 68–85; RESP 18–20; TEMP 97.6–98.3; O2SAT 92–100
== END 2023-06-26 20:09 | DRG 720 ==
LOC: ER 14:40 → EDBD 14:40 → TELE-CENTR 22:20 → TELE 22:20 → TELE-CENTR 06-21 00:52
PROVIDERS: ADMIT Nurse Practitioner Family; ATTEND Internal Medicine Geriatric Medicine
PROC: 05H933Z Insertion of Infusion Device into Right Brachial Vein, Percutaneous Approach (ICD-10-PCS; principal; 2023-06-26)
PROC: B54MZZA Ultrasonography of Right Upper Extremity Veins, Guidance (ICD-10-PCS; 2023-06-26)
DX: A41.9 Sepsis, unspecified organism (principal); J96.21 Acute and chronic respiratory failure with hypoxia; E43 Unspecified severe protein-calorie malnutrition; E87.20 Acidosis, unspecified; R18.8 Other ascites; I13.0 Hypertensive heart and chronic kidney disease with heart failure and stage 1 through stage 4 chronic kidney disease, or unspecified chronic kidney disease; N17.9 Acute kidney failure, unspecified; E88.09 Other disorders of plasma-protein metabolism, not elsewhere classified; K74.60 Unspecified cirrhosis of liver; L03.115 Cellulitis of right lower limb; L03.116 Cellulitis of left lower limb; J44.1 Chronic obstructive pulmonary disease with (acute) exacerbation; E66.01 Morbid (severe) obesity due to excess calories; R26.81 Unsteadiness on feet; D53.9 Nutritional anemia, unspecified; E55.9 Vitamin D deficiency, unspecified; E87.6 Hypokalemia; N18.32 Chronic kidney disease, stage 3b; B19.20 Unspecified viral hepatitis C without hepatic coma; F17.210 Nicotine dependence, cigarettes, uncomplicated; F41.9 Anxiety disorder, unspecified; N26.1 Atrophy of kidney (terminal); B96.4 Proteus (mirabilis) (morganii) as the cause of diseases classified elsewhere; B96.20 Unspecified Escherichia coli [E. coli] as the cause of diseases classified elsewhere; Z16.12 Extended spectrum beta lactamase (ESBL) resistance; Z99.81 Dependence on supplemental oxygen; Z91.199 Patient's noncompliance with other medical treatment and regimen due to unspecified reason; Z87.442 Personal history of urinary calculi; Z90.49 Acquired absence of other specified parts of digestive tract; Z82.49 Family history of ischemic heart disease and other diseases of the circulatory system; Z68.42 Body mass index [BMI] 45.0-49.9, adult
CPT/HCPCS: 36415; 71045; 76775; 80048; 80053; 80202; 80307; 81001; 82306; 82570; 82962; 83036; 83605; 83735; 83880; 83970; 84100; 84156; 84300; 84443; 84484; 85025; 85652; 86141; 86850; 86900; 86901; 87040; 87077; 87186; 87205; 93306; 93925; 93970; 94640; 99291; G0378; J1335; J2185; J2405; P9047